=== PATIENT | female | born 1985 | race African-American/Black ===

== ENCOUNTER 2017-12-15 22:53 | Emergency (ER) | payer MEDICAID ==
[~2017-12-15] VITALS: Ht 170.2 cm; Wt 85.3 kg
[2017-12-15] MEDS ORDERED: VENTOLIN INHALER (23:12)
[2017-12-15] MEDS ORDERED: ALBUTEROL SULFATE 2.5 MG/3 ML NEBU ONE (23:23)
--- NOTE | 2017-12-15 23:24 | NUR ---
Pt was brought in by ambulance for complaints of SOB, "unable to take air in" even with Albuterol INH use since yesterday. C/O chest pain, tightness with inspiration. Pt unable to take a deep breath. Able to speak clearly. Some dyspnea noted. Will cont to monitor. Friend at bedside. Call light within reach.
--- NOTE | 2017-12-15 23:25 | NUR ---
RT at bedside.
[2017-12-15] MEDS ORDERED: ALBUTEROL SULFATE 2.5 MG/3 ML NEBU NEB ONE (23:30)
--- NOTE | 2017-12-15 23:41 | NUR ---
Pt is feeling better s/p breathing tx. Clear speech without dyspnea. Pt feels well to go home. Will cont to monitor.
--- NOTE | 2017-12-16 | NUR ---
Patient discharged to home in stable conditon. Written and verbal after care instructions given. Patient verbalizes understanding of instructions.
== END 2017-12-16 00:04 | disposition home or self-care (01) ==
LOC: ER 22:55
DX: J45.909 Unspecified asthma, uncomplicated (principal)
CPT/HCPCS: 94640; 99283; A4663